=== PATIENT | male | born 1960 | race African-American/Black ===

== ENCOUNTER → 2018-02-19 | Day surgery (SDC) | payer OTHER ==
[~2018-02-19] MED LIST: AMLO5TAB7 PO; IV RINGERS,LACTATED 1000ML 1,000 ML IV SCH; LIDOCAINE 1% PF 2 ML VIAL. ID PRN; LORA10TA3 PO; MIDAZOLAM HCL/PF 2 MG/2 ML VIAL. IV PRN; MONT10TA9 PO; NAPR-514 PO; OMEP40CA5 PO; PREG100C PO; PROPOFOL 40 ML IV ONE; SILD20TA2 PO; SIMV20TA3 PO; fentaNYL PF VIAL 100 MCG/2 ML VIAL IV PRN
--- NOTE | 2018-02-19 09:30 | PDOC1 ---
HISTORY & PHYSICAL H&P Erich Marroquin Jr, V. [id number] 1960 02/13/2018 04:00 PM 04/09 STEPHAN [employer] [facility], [facility] OUR PATIENTS COM[facility] FIRST [address] [place] [address]. [phone] Patient: Erich Marroquin Jr Date of : 1960 Date: 02/13/2018 4:00 PM Visit Type: Consult This 58 year old male presents for Screening colonoscopy. History of Present Illness: 1. Screening colonoscopy No prior screening. Denies risk factors. Pertinent negatives include abdominal pain, change in bowel habits, change in stool caliber, constipation, decreased appetite, diarrhea, melena, nausea, rectal bleeding, vomiting, weight gain and weight loss. Additional information: No family history of colon cancer , No family history of Crohn's/colitis, No NSAID/ASA use and Last colonoscopy 2007. INTAKE COMMENTS: Intake Comments: patient states he is here for a colonoscopy PROBLEM LIST: Problem Description Onset Date Chronic Clinical Status Notes Hyperlipidemia 08/05/2010 Y Mapped from [facility] Chronic Conditions table on 2013 by the ICD9 to SNOMED Bulk Mapping Utility. The mapped diagnosis code was Hyperlipidemia NEC/NOS, 272.4, added by Satish Cerda, with responsible provider Satish Cerda MD. Onset date 08/05/2010; last addressed on 05/09/2013. Benign essential hypertension 08/05/2010 Y Mapped from [facility] Chronic Conditions table on 10/27/2013 by the ICD9 to SNOMED Bulk Mapping Utility. The mapped diagnosis code was Benign Hypertension, 401.1, added by Satish Cerda, with responsible provider Satish Cerda MD. Onset date 08/05/2010; last addressed on 05/09/2013. Abnormal glucose level 08/05/2010 Y Mapped from [facility] Chronic Conditions table on 10/27/2013 by the ICD9 to SNOMED Bulk Mapping Utility. The mapped diagnosis code was Abnormal Glucose NEC, 790.29, added by Satish Cerda, with responsible provider Satish Cerda MD. Onset date 08/05/2010; last addressed on 05/09/2013. Impotence of organic origin 08/05/2010 Y Mapped from [facility] Chronic Conditions table on 10/27/2013 by the ICD9 to SNOMED Bulk Mapping Utility. The mapped diagnosis code was Erectile Dysfunction, 607.84, added by Satish Cerda, with responsible provider Satish Cerda MD. Onset date 08/05/2010; last addressed on 02/06/2013. Microscopic hematuria 08/05/2010 Y Mapped from [facility] Chronic Conditions table on 10/27/2013 by the ICD9 to SNOMED Bulk Mapping Utility. The mapped diagnosis code was Microscopic hematuria, 599.72, added by Satish Cerda, with responsible provider Satish Cerda MD. Onset date 08/05/2010. Acute bacterial sinusitis 05/07/2015 Borderline diabetes mellitus 09/17/2014 Chronic sinusitis with recurrent bronchitis 06/24/2015 Acute bacterial bronchitis 04/14/2015 Acute pharyngitis due to other specified organisms 04/14/2015 Annual physical exam 03/12/2015 Full examination performed 02/08/2012 Y Mapped from [facility] Chronic Conditions table on 02/20/2014 by Mayuri Berrios. The mapped diagnosis code was Annual physical exam,V70.0, added by Satish Cerda , with responsible provider Satish Cerda MD MD. Onset date 02/08/2012; last addressed on 02/06/2013. PAST MEDICAL/SURGICAL HISTORY (Detailed) Disease/disorder Onset Date Management Date Comments bilateral knee surgery (ACL tear) Rotator cuff surgery repair carpal tunnel release, bilateral Hyperlipidemia Hypertension Family History (Detailed) Relationship Family Member Name Age at Condition Onset Age Cause of Close relative N Hypertension N Father N Stroke N Mother N Cirrhosis N Social History: (Detailed) The patient is right-handed. Preferred language is Spanish. EDUCATION/EMPLOYMENT/OCCUPATION Employment History Status Retired Restrictions [employer] full-time MARITAL STATUS/FAMILY/SOCIAL SUPPORT Currently single. CHILDREN Does not have children. Tobacco use status: Occasional cigarette smoker. Smoking status: Heavy tobacco smoker. TOBACCO CESSATION INFORMATION Date Counseled By Order Status Description Code Tobacco Cessation Information 11/16/2011 Satish Cerda Tobacco cessation counseling completed Tobacco cessation counseling 02/08/2012 Criss Santoro Tobacco cessation counseling completed Tobacco cessation counseling 05/10/2012 Criss Santoro Tobacco cessation counseling completed Tobacco cessation counseling TOBACCO/VAPING EXPOSURE There is passive smoke exposure. Tobacco type: Cigarette ALCOHOL There is no history of alcohol use. CAFFEINE The patient uses caffeine: soda - 8 oz a day. VOODOO/SPIRITUAL The patient does not have a latter day affiliation. Doesn't practice lutheran. Doesn't have spiritual beliefs. Adventist/spirituality is not an important part of the patient's life. Patient does not agree to transfusion. HOME ENVIRONMENT/SAFETY The home has smoke detectors. No carbon monoxide detector at home. Home heating is gas. The home does not have radon present. Doesn't use seat belts. EXPERIENCE Patient has experience and currently is retired . Served in the [employer] for 22 years with a general discharge. Patient was not stationed overseas. Medications (active prior to today) Medication Name Sig Description Start Date Stop Date Refilled Rx Elsewhere Aspir-81 81 mg tablet,delayed release take 1 tablet by oral route every day 08/201710/11/2017 N CYCLOBENZAPRINE 10 MG TABLET TAKE 1 TABLET BY MOUTH TWICE A DAY 01/07/201804/2017 N NAPROXEN 500 MG TABLET TAKE 1 TABLET BY MOUTH TWICE A DAY WITH FOOD 01/07/2018 01/07/2018 N Augmentin 875 mg-125 mg tablet take 1 tablet by oral route every 12 hours 01/21 N Viagra 100 mg tablet take 1 tablet (100MG) by ORAL route every day as neededapproximately 1 hour before sexual activity 01/21/2018 01/21/2018 N Singulair 10 mg tablet take 1 tablet by oral route every day 01/21/20182017 N simvastatin 20 mg tablet take 1 tablet by oral route every day in the evening 01/21/2018 01/21/2018 N omeprazole 40 mg capsule,delayed release TAKE 1 CAPSULE DAILY BEFORE A MEAL 01/21/2018 N Norvasc 5 mg tablet TAKE 1 TABLET DAILY 01/21/2018 01/21/2018 N Lyrica 100 mg capsule take 1 capsule by ORAL route 2 times every day 01/21/2018 01/21/2018 N Claritin 10 mg tablet TAKE 1 TABLET BY MOUTH EVERY DAY 01/21/2018 01/21/2018 N allopurinol 100 mg tablet take 1 tablet by ORAL route every day 01/21/2018 N Ambien CR 12.5 mg tablet,extended release take 1 tablet by oral route every day at bedtime 01/21/2018 01/21/2018 N Medication Reconciliation Medications reconciled today. Medication Reviewed Adherence Medication Name Sig Desc Elsewhere Status taking as directed Aspir-81 81 mg tablet,delayed release take 1 tablet by oral route every day N Verified taking as directed CYCLOBENZAPRINE 10 MG TABLET TAKE 1 TABLET BY MOUTH TWICE A DAY N Verified taking as directed NAPROXEN 500 MG TABLET TAKE 1 TABLET BY MOUTH TWICE A DAY WITH FOOD N Verified taking as directed Augmentin 875 mg-125 mg tablet take 1 tablet by oral route every 12 hours N Verified taking as directed Viagra 100 mg tablet take 1 tablet (100MG) by ORAL route every day as neededapproximately 1 hour before sexual activity N Verified taking as directed Singulair 10 mg tablet take 1 tablet by oral route every day N Verified taking as directed Norvasc 5 mg tablet TAKE 1 TABLET DAILY N Verified taking as directed simvastatin 20 mg tablet take 1 tablet by oral route every day in the evening N Verified taking as directed omeprazole 40 mg capsule,delayed release TAKE 1 CAPSULE DAILY BEFORE A MEAL N Verified taking as directed Claritin 10 mg tablet TAKE 1 TABLET BY MOUTH EVERY DAY N Verified taking as directed Lyrica 100 mg capsule take 1 capsule by ORAL route 2 times every day N Verified taking as directed allopurinol 100 mg tablet take 1 tablet by ORAL route every day N Verified taking as directed Ambien CR 12.5 mg tablet,extended release take 1 tablet by oral route every day at bedtime N Verified Medications (Added, Continued or Stopped today) Start Date Medication Directions PRN Status PRN Reason Instruction Stop Date 01/21/2018 allopurinol 100 mg tablet take 1 tablet by ORAL route every day N 01/21/2018 Ambien CR 12.5 mg tablet,extended release take 1 tablet by oral route every day at bedtime N 10/11/2017 Aspir-81 81 mg tablet,delayed release take 1 tablet by oral route every day N 01/21/2018 Augmentin 875 mg-125 mg tablet take 1 tablet by oral route every 12 hours N 01/21/2018 Claritin 10 mg tablet TAKE 1 TABLET BY MOUTH EVERY DAY N 01/07/2018 CYCLOBENZAPRINE 10 MG TABLET TAKE 1 TABLET BY MOUTH TWICE A DAY N 01/21/2018 Lyrica 100 mg capsule take 1 capsule by ORAL route 2 times every day N 01/07/2018 NAPROXEN 500 MG TABLET TAKE 1 TABLET BY MOUTH TWICE A DAY WITH FOOD N 01/21/2018 Norvasc 5 mg tablet TAKE 1 TABLET DAILY N 01/21/2018 omeprazole 40 mg capsule,delayed release TAKE 1 CAPSULE DAILY BEFORE A MEAL N 01/21/2018 simvastatin 20 mg tablet take 1 tablet by oral route every day in the evening N 01/21/2018 Singulair 10 mg tablet take 1 tablet by oral route every day N 01/21/2018 Viagra 100 mg tablet take 1 tablet (100MG) by ORAL route every day as neededapproximately 1 hour before sexual activity N Allergies: Ingredient Reaction (Severity) Medication Name Comment NO KNOWN ALLERGIES Review of Systems System Neg/Pos Details Constitutional Negative Chills, Fever, Malaise, Weight gain and Weight loss. ENMT Negative Sore throat. Eyes Negative Double vision. Respiratory Negative Dyspnea and Wheezing. Cardio Negative Chest pain and Irregular heartbeat/palpitations. GI Positive See HPI. GI Negative Abdominal pain, Change in bowel habits, Change in stool caliber, Constipation, Decreased appetite, Diarrhea, Melena, Nausea, See HPI, Rectal bleeding and Vomiting. Negative Dysuria and Hematuria. Endocrine Negative Cold intolerance and Heat intolerance. Psych Negative Anxiety. Integumentary Negative Hives and Rash. MS Negative Joint pain. Mcih/Lymph Negative Easy bleeding and Easy bruising. Allergic/Immuno Negative Food allergies. Vital Signs Time BP mm/Hg Pulse /min Resp /min Temp F Ht ft Ht in Ht cm Wt lb Wt kg BMI kg/ m2 BSA m2 O2 Sat% 3:50 PM 108/62 101 14 97.2 5.0 11.00 180.34 201.40 91.354 28.09 2.14 94 Measured By Time Measured by 3:50 PM Marilu Swygert PHYSICAL EXAM: Exam Findings Details Constitutional Normal Well developed. Eyes Normal Conjunctiva - Right: Normal, Left: Normal. Sclera - Right: Normal, Left: Normal. Nasopharynx Normal Lips/teeth/gums - Normal. Neck Exam Normal Inspection - Normal. Thyroid gland - Normal. Respiratory Normal Inspection - Normal. Auscultation - Normal. Cardiovascular Normal Regular rate and rhythm. No murmurs, gallops, or rubs. Abdomen Normal Inspection - Normal. Anterior palpation - No guarding. No abdominal tenderness. No hepatic enlargement. No spleen enlargement. No hernia. No ascites. Skin Normal Inspection - Normal. Extremity Normal No edema. Psychiatric Normal Orientation - Oriented to time, place, person & situation. Appropriate mood and affect. Assessment/Plan # Detail Type Description 1. Assessment Encounter for screening colonoscopy (Z12.11). Patient Plan schedule colonoscopy at [facility] Plan Orders Further diagnostic evaluations ordered today include(s) Colonoscopy , flexible; diagnostic to be performed today. He is to schedule a follow-up visit with Natanael Woods MD upon completion of work-up. Active Patient Care Team Members Name Contact Agency Type Support Role Relationship Active Date Inactive Date Specialty Satish Cerda MD Patient provider PCP Internal Med Document Electronically signed: Natanael Woods MD 02/13/2018 04:16 PM Document generated by: Natanael Woods 02/13/2018 Tawanda Beck MD, Family Practice; Hugh Cameron MD Internal Medicine; Satish Cerda MD, Internal Medicine; Brittany Woods MD Internal Medicine; Natanael Woods MD, Gastroenterology; Rio Quan MD, Rheumatology, Linda Rubio APRN ------ 02/19/18 Patient seen and examined. No change in H&P. NATANAEL WOODS MD Feb 19, 2018 09:30
[2018-02-19 10:40] VITALS: BP 121/79
== END | disposition home or self-care (01) ==
LOC: ENDOS 09:13
PROVIDERS: ATTEND Internal Medicine Gastroenterology
DX: Z12.11 Encounter for screening for malignant neoplasm of colon (principal); K57.30 Diverticulosis of large intestine without perforation or abscess without bleeding; I10 Essential (primary) hypertension; E78.5 Hyperlipidemia, unspecified; Z98.890 Other specified postprocedural states; Z82.3 Family history of stroke; Z83.79 Family history of other diseases of the digestive system; F17.210 Nicotine dependence, cigarettes, uncomplicated; Z79.82 Long term (current) use of aspirin; Z79.899 Other long term (current) drug therapy; Z79.2 Long term (current) use of antibiotics
CPT/HCPCS: 45378; J2704

== ENCOUNTER → 2019-01-22 | Outpatient (CLI) | payer OTHER ==
[2018-02-19 10:40] VITALS: BP 121/79
[~2019-01-22] MED LIST changes: +AMLO5TAB10 PO; -AMLO5TAB7 PO; -IV RINGERS,LACTATED 1000ML 1,000 ML IV SCH; -LIDOCAINE 1% PF 2 ML VIAL. ID PRN; -MIDAZOLAM HCL/PF 2 MG/2 ML VIAL. IV PRN; +MONT10TA49 PO; -MONT10TA9 PO; +OMEP40CA45 PO; -OMEP40CA5 PO; -PROPOFOL 40 ML IV ONE; -fentaNYL PF VIAL 100 MCG/2 ML VIAL IV PRN
--- NOTE | 2019-01-22 16:08 | RAD ---
Examination: CT CHEST WO CONTRAST History: Interstitial lung disease Comparison/Correlation: None Findings: Axial images of the chest were obtained without contrast. Thin section images according to high-resolution protocol also obtained with the patient in supine and prone positions. Blebs are noted involving the upper lung de la cruz greater on the right. Mild bilateral lower lobe bronchiectasis is present. No suspicious pulmonary nodules. No suspicious infiltrates. Minimal left costophrenic atelectasis is present. No enlarged thoracic lymph nodes. No pleural or pericardial effusion. Right renal cyst is partially seen. Left renal lower pole calyceal calculus measuring 0.5 cm diameter is present. No acute bony process. [place] sutures along the left humeral head are present. Impression: No suspicious infiltrate. No suspicious interstitial lung findings. Emphysematous blebs are present. Mild lower lobe bronchiectasis. PQRS Compliance Statement: One or more of the following individualized dose reduction techniques were utilized for this examination: 1. Automated exposure control 2. Adjustment of the mA and/or kV according to patient size 3. Use of iterative reconstruction technique Electronically signed by: Prince Soto MD (01/22/2019 4:05 PM) [facility]
== END | disposition home or self-care (01) ==
LOC: CT 07:47
PROVIDERS: ATTEND Internal Medicine
DX: J43.9 Emphysema, unspecified (principal); J47.9 Bronchiectasis, uncomplicated; J98.11 Atelectasis; N28.1 Cyst of kidney, acquired; N20.0 Calculus of kidney; Z79.82 Long term (current) use of aspirin; Z79.899 Other long term (current) drug therapy
CPT/HCPCS: 71250

== ENCOUNTER 2019-04-22 21:08 | Emergency (ER) | payer OTHER ==
[~2019-04-22] VITALS: Ht 185.4 cm; Wt 88.5 kg
[~2019-04-22 21:08] MED LIST changes: +SIMV20TA18 PO; -SIMV20TA3 PO
[2019-04-22 23:13] VITALS: BP 154/91
[2019-04-22] MEDS ORDERED: oxyCODONE/APAP 10/325 1 TAB TABLET PO ONE (23:30)
--- NOTE | 2019-04-22 23:36 | PHYS DOC ---
General Chief Complaint: SHOULDER INJURY Stated Complaint: POST-OP RIGHT SHOULDER INJURY Time Seen by MD: 21:27 Source: patient Exam Limitations: no limitations History of Present Illness Initial Comments Patient is a 59-year-old right-handed AA male who is post right first shoulder arthroplasty performed 2 weeks ago at outside institution who presents with acute right shoulder pain 30 minutes prior to ED arrival. Patient states he was leaning over and twisted patient motor moved anteriorly and posteriorly resulting in a sharp pain. Patient wearing a shoulder immobilizer at time. No other acute plans Pain/Injury Location: right shoulder Method of Injury: twisted Modifying Factors: improves with immobilization Allergies: Coded Allergies: No Known Drug Allergies (Unverified , 02/19/18) Past Medical History Medical History: no pertinent history Review of Systems Constitutional: no symptoms reported Respiratory: no symptoms reported Cardiovascular: no symptoms reported Gastrointestinal: no symptoms reported Genitourinary: no symptoms reported Musculoskeletal: see HPI Skin: no symptoms reported Psychiatric/Neurological: no symptoms reported Physical Exam General Appearance: WD/WN HEENT: PERRL/EOMI Shoulder: limited ROM, pain, soft tissue tenderness, swelling Elbow/Forearm: normal inspection Hand: normal inspection Orders, Labs, Meds XR R shoulder: no acute findings. Pain addressed. Recommend ortho follow up JEFF FELIX DO Apr 22, 2019 23:36
[2019-04-22] MEDS ORDERED: ONDA4TAB7 PO (23:41)
--- NOTE | 2019-04-23 01:05 | RAD ---
Right shoulder 2 views: Reason for examination: Shoulder pain. A right shoulder prosthesis is present. The humeral head component appears to be anteriorly dislocated from the glenoid component. An acute side up fracture is not seen. There does however be chronic changes at the distal clavicle. IMPRESSION: Right total shoulder prosthesis present however the humeral head component appears to be dislocated anterior to the glenoid component. Electronically signed by: Anne-Marie Ingram MD (04/23/2019 1:02 AM) [id number]
== END 2019-04-22 23:41 | disposition home or self-care (01) ==
LOC: ER 21:08
DX: M25.511 Pain in right shoulder (principal); X50.9XXA Other and unspecified overexertion or strenuous movements or postures, initial encounter; Y93.89 Activity, other specified; Y92.89 Other specified places as the place of occurrence of the external cause; Y99.8 Other external cause status
CPT/HCPCS: 73030; 99284